=== PATIENT | male | born 1990 | race Caucasian/White ===

== ENCOUNTER → 2017-11-06 | Outpatient (CLI) | payer BC ==
--- NOTE | 2017-11-06 16:14 | XR ---
EXAMINATION TYPE: XR cervical spine comp DATE OF EXAM: 11/06/2017 COMPARISON: None HISTORY: Cephalgia, injury TECHNIQUE: Five-view cervical spine FINDINGS: There is mild scoliosis with convexity to the left. Foramen are patent. There is kyphosis c entered at approximately C5. Prevertebral space is normal. Disc heights are preserved. Vertebral body heights are preserved. Poste rior spinal lamellar line is intact. The odontoid is visualized is normal. The tip of the odontoid is partially obscured from incisors. IMPRESSION: 1. No fractures are identified. CT could be performed if closer evaluation is required. 2. Scoliosis and kyphosis which can be related to muscle spasm.
== END | disposition home or self-care (01) ==
LOC: RADXRYALE 14:08
PROVIDERS: ATTEND Physician Assistant Medical
DX: M41.82 Other forms of scoliosis, cervical region (principal); M62.838 Other muscle spasm
CPT/HCPCS: 72050

== ENCOUNTER → 2018-07-23 | Outpatient (CLI) | payer BC ==
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
== END | disposition home or self-care (01) ==
LOC: LABWHC1 06:54
PROVIDERS: ATTEND Family Medicine
DX: R93.5 Abnormal findings on diagnostic imaging of other abdominal regions, including retroperitoneum (principal)
CPT/HCPCS: 76700

== ENCOUNTER → 2020-07-20 | Outpatient (CLI) | payer BC ==
--- NOTE | 2020-07-20 16:25 | CONS ---
CONSULTATION DATE OF SERVICE: 07/20/2020 This 30-year-old gentleman has been evaluated in the sleep center for possible obstructive sleep apnea-hypopnea syndrome and [id number] movements during sleep. HISTORY OF PRESENT ILLNESS/SLEEP-WAKE EVALUATION: Patient's usual sleep schedule on weekdays is from 9 p.m. to 5:30 a.m. and on weekends from 11:30 p.m. to 9:30 a.m. He sometimes has problems with falling asleep, has a TV set in the bedroom. He sleeps in different positions, including back, side and stomach. He snores loudly and has witnessed episodes of stopped breathing during sleep. He wakes up from choking and gasping for air every hour and once has to go to the restroom at night. Questionable positive history of hypnagogic hallucinations. Sometimes during the night the patient has iid-iv-apxws movements when he moves his arms and fighting. Positive history of falling. [place] Sleepiness Scale is 6. PAST MEDICAL HISTORY: Positive for asthma, allergies. SURGICAL HISTORY: Tonsillectomy, history of ear tube insertion many years ago. MEDICATIONS: Montelukast 10 mg once a day, Claritin once a day, albuterol inhaler on an as-needed basis. SOCIAL HISTORY: Negative for smoking. Alcohol consumption: Occasional. FAMILY HISTORY: Cancer, lung problems. REVIEW OF SYSTEMS: No fevers. No double vision. No recent chest pain. No shortness of breath. No abdominal pain. No bleeding episodes. No blood in the urine. No seizure episodes. Multiple awakenings from sleep, sleepiness during the day. PHYSICAL EXAMINATION: GENERAL: A pleasant gentleman without distress. VITAL SIGNS: BP 137/79, HR 100, RR 15, height 5 feet 10 inches, weight 248.4, temperature 98.2, oxygen saturation at room air 97%. HEENT: PERRLA, EOMI. Evaluation of oropharynx showed tongue protrudes midline. Low position of soft palate. Mallampati III. NECK: Supple. No JVD. Thyroid is not palpable. Wide neck: 17-1/2 inches in circumference. LUNGS: Clear to percussion and to auscultation. Good air exchange. No wheezing or rhonchi. HEART: S1, S2 regular. No murmurs, gallops or rubs. ABDOMEN: Slightly obese. EXTREMITIES: No clubbing or cyanosis. KNITTER MACHINE: Awake, alert, and oriented X3. Cranial nerves 2 to 7 intact. There is no fasciculation or atrophy. noted. No focal deficits observed. IMPRESSION: 1. Loud snoring, witnessed episodes of stopped breathing during sleep, low position of soft palate, Mallampati III, wide neck at 17-1/2 inches in circumference; obstructive sleep apnea-hypopnea syndrome. 2. Episodes of bqk-vi-[id number] behavior during the sleep. Possible REM sleep behavioral disorder. 3. Obesity. Body mass index 35.5. 4. Asthma. 5. Allergies. 6. Status post tonsillectomy. 7. History of ear infection in childhood with tube insertion. PLAN: 1. Polysomnography for evaluation of patient's breathing during sleep and also to check for possibility of REM sleep behavioral disorder. 2. CPAP/BiPAP titration if sleep study confirms obstructive sleep apnea-hypopnea syndrome. 3. Preferable position during sleep on the side. 4. No driving if patient feels any sleepiness. 5. I will see patient for follow up visit to explain results of testing and following plan. Thank you very much for referring this patient for consultation. Sincerely, Kenny Mccann MD, PhD, FAASM Diplomat of [employer] [employer] [employer] [facility] [place] MMODL / JCN: [id number] /
== END ==
LOC: SLEEP 14:05
PROVIDERS: ATTEND Internal Medicine
DX: G47.33 Obstructive sleep apnea (adult) (pediatric) (principal); E66.9 Obesity, unspecified; Z68.35 Body mass index [BMI] 35.0-35.9, adult; J45.909 Unspecified asthma, uncomplicated; T78.40XA Allergy, unspecified, initial encounter; Z98.890 Other specified postprocedural states; Z86.69 Personal history of other diseases of the nervous system and sense organs
CPT/HCPCS: 99211